=== PATIENT | female | born 1970 | race Caucasian/White ===

== ENCOUNTER 2022-05-08 13:12 | Emergency (ER) | payer OTHER ==
[~2022-05-08] VITALS: Ht 167.6 cm; Wt 90.9 kg
[2022-05-08 13:42] VITALS: BP 160/79
[2022-05-08] MEDS ORDERED: GABAPENTIN 300 MG CAPSULE PO ONE (14:30)
[2022-05-08] MEDS ORDERED: KETOROLAC TROMETHAMINE 60 MG/2 ML VIAL IM ONE (14:30)
[2022-05-08] MEDS ORDERED: METHOCARBAMOL 500 MG TABLET PO ONE (14:30)
[2022-05-08] MEDS ORDERED: NAPR-1025 PO (15:35)
[2022-05-08] MEDS ORDERED: METH-659 PO (15:35)
[2022-05-08] MEDS ORDERED: GABA-1181 PO (15:35)
== END 2022-05-08 15:50 | disposition home or self-care (01) ==
LOC: EMS 13:16
DX: S46.912A Strain of unspecified muscle, fascia and tendon at shoulder and upper arm level, left arm, initial encounter (principal); X58.XXXA Exposure to other specified factors, initial encounter; Y93.89 Activity, other specified; Y92.89 Other specified places as the place of occurrence of the external cause; Y99.8 Other external cause status; Z90.49 Acquired absence of other specified parts of digestive tract
CPT/HCPCS: 99283; 73030; 96372; J1885

== ENCOUNTER 2023-11-22 09:21 | Emergency (ER) | payer OTHER ==
[~2023-11-22] VITALS: Ht 162.6 cm; Wt 86.4 kg
[~2023-11-22 09:21] MED LIST: GABA-1181 PO; METH-659 PO; NAPR-1025 PO
[2023-11-22 09:25] VITALS: BP 131/82; PULSE 70; RESP 18; TEMP 98.4
== END 2023-11-22 11:04 | disposition home or self-care (01) ==
LOC: EMS 09:23
DX: S46.812A Strain of other muscles, fascia and tendons at shoulder and upper arm level, left arm, initial encounter (principal); S80.02XA Contusion of left knee, initial encounter; Z79.899 Other long term (current) drug therapy; W01.0XXA Fall on same level from slipping, tripping and stumbling without subsequent striking against object, initial encounter; Y93.89 Activity, other specified; Y92.89 Other specified places as the place of occurrence of the external cause; Y99.8 Other external cause status
CPT/HCPCS: 99283